=== PATIENT | female | born 1970 | race African-American/Black ===

== ENCOUNTER 2019-11-23 09:16 | Emergency (ER) | payer BC, OTHER ==
[2019-11-24 13:52] LABS: SARS-CoV-2 MS2 Positive; SARS-CoV-2 N Gene Negative; SARS-CoV-2 S Gene Negative; SARS-CoV-2 by NAA Not Detected (NotDetected); SARS-CoV-2 orf1ab Negative
== END 2019-11-23 09:53 | disposition home or self-care (01) ==
LOC: ERS 09:16
DX: J34.89 Other specified disorders of nose and nasal sinuses (principal); Z20.828 Contact with and (suspected) exposure to other viral communicable diseases; E11.9 Type 2 diabetes mellitus without complications; J45.909 Unspecified asthma, uncomplicated; I10 Essential (primary) hypertension
CPT/HCPCS: 87635; 99282; U0003